=== PATIENT | female | born 1980 | race Two or more races ===

== ENCOUNTER → 2021-10-29 | Outpatient (CLI) | payer OTHER ==
--- NOTE | 2021-10-29 08:35 | RAD ---
INDICATION: Reason: RLQ TENDERNESS, GALACTORHHEA / Spl. Instructions: / History: COMPARISON: None. TECHNIQUE: Grayscale and color ultrasound images uterus and adnexa. Transvaginal images were obtaine d. FINDINGS: Uterus: 94 x 51 x 46 mm. 7 mm endometrial stripe Right ovary is not visualized. Left ovary is 26 x 19 x 17 mm. Nabothian cyst formation. There is some free fluid within the pelvis. Complex cystic lesion at the anterior aspect of the uterus measuring 14 x 11 mm. Predominantly solid and hypervascular. IMPRESSION: * Predominantly solid with small cystic component mass at the anterior aspect of the uterus. Nonspe cific in nature but the most common cause would be uterine fibroid. * Nabothian cyst formation. * Free fluid in the pelvis. * Right ovary is obscured by bowel gas. Electronically signed by: Maykel Mora MD (10/29/2021 8:32 AM) [id number]
== END ==
LOC: US 07:42
PROVIDERS: ATTEND Family Medicine
DX: N88.8 Other specified noninflammatory disorders of cervix uteri (principal); N64.3 Galactorrhea not associated with childbirth
CPT/HCPCS: 76830